=== PATIENT | female | born 1965 | race Caucasian/White ===

== ENCOUNTER → 2017-02-07 | Outpatient (CLI) | payer BC ==
[~2017-02-07] MED LIST: ALPH1TAB9 PO; ASPI-557 PO; CEPH500C2 PO; CITA40TA6 PO; LEVO25CA5 PO; METF-206 PO; METO50TA5 PO; MULT-933 PO; OMEG500C7 PO; OMEP40CA52 PO; PRAV40TA3 PO; TRAM50TA4 PO
== END ==
LOC: WC.BC 15:01
DX: Z12.31 Encounter for screening mammogram for malignant neoplasm of breast (principal); N64.59 Other signs and symptoms in breast
CPT/HCPCS: 77063; G0202

== ENCOUNTER 2017-10-27 08:35 | Inpatient (IN) ==
--- NOTE | 2017-10-27 08:54 | Emergency Department Report ---
SOB HPI - General Chief Complaint: Shortness of Breath/Dyspnea Stated Complaint: soa Time Seen by Provider: 10/27/17 08:37 - Related Data Home Medications Medication Instructions Recorded Confirmed Metformin Hcl 500 mg PO BID #0 10/23/12 [place]-3 Fatty Acids [Fish Oil] 1 cap PO DAILY #0 01/05/16 Ejnne-T-Zauwwdzfhmepc [Beano] 150 tab PO DAILY #0 07/16/16 Omeprazole 40 mg PO DAILY #0 cap 07/16/16 Aspirin [Aspir 81] 1 tab PO DAILY #30 tab 08/19/16 Citalopram Hydrobromide 1.5 tab PO DAILY #0 tab 08/19/16 [Citalopram HBr] Levothyroxine Sodium [Tirosint] 1 cap PO DAILY #0 08/19/16 Metoprolol Tartrate 2 tab PO BID #0 tab 08/19/16 Multivitamin [Multi-Day Vitamins] 1 tab PO DAILY #30 tab 08/19/16 Pravastatin Sodium 40 mg PO HS #0 tab 08/19/16 Tramadol HCl 50 mg PO [id number] #0 tab 08/19/16 Previous Rx's Medication Instructions Recorded cephALEXin [Cephalexin] 500 mg PO BID 3 Days #6 cap 11/04/16 Allergies Allergy/AdvReac Type Severity Reaction Status Date / Time codeine Allergy Unknown Verified 10/27/17 08:46 sulfamethoxazole Allergy Unknown Verified 10/27/17 08:46 trimethoprim Allergy Unknown Verified 10/27/17 08:46 hydrocodone Allergy Rash Verified 10/27/17 08:46 tea tree AdvReac Mild RASH Verified 10/27/17 08:46 ON LICENSE OF [facility] Patient Stated Medical History Post Menopausal Yes Now No Course Vital Signs Temperature 97.4 F 10/27/17 08:46 Pulse Rate 70 10/27/17 08:46 Respiratory Rate 22 10/27/17 08:46 Blood Pressure 146/90 H 10/27/17 08:46 Pulse Oximetry 92 10/27/17 08:46 Temperature 97.4 F 10/27/17 08:46 Pulse Rate 70 10/27/17 08:46 Respiratory Rate 22 10/27/17 08:46 Blood Pressure 146/90 H 10/27/17 08:46 Pulse Oximetry 92 10/27/17 08:46 Disposition Prescriptions: No Action Omeprazole 40 mg PO DAILY #0 cap Lggsj-Q-Upyhlkvkagmkg [Beano] 150 tab PO DAILY #0 Aspirin [Aspir 81] 1 tab PO DAILY #30 tab Citalopram Hydrobromide [Citalopram HBr] 1.5 tab PO DAILY #0 tab Pravastatin Sodium 40 mg PO HS #0 tab Levothyroxine Sodium [Tirosint] 1 cap PO DAILY #0 cephALEXin [Cephalexin] 500 mg PO BID 3 Days #6 cap Metformin Hcl 500 mg PO BID #0 [place]-3 Fatty Acids [Fish Oil] 1 cap PO DAILY #0 Metoprolol Tartrate 2 tab PO BID #0 tab Multivitamin [Multi-Day Vitamins] 1 tab PO DAILY #30 tab Tramadol HCl 50 mg PO [id number] #0 tab Referrals: Solomon Arroyo MD [Family Provider] -
[2017-10-27] MEDS ORDERED: IOHEXOL 350mg/ml 75ml INJECTION ONE (09:52)
[2017-10-27] MEDS ORDERED: NS 100 ML ONE (09:52)
[2017-10-27] MEDS ORDERED: SALINE FLUSH 10ml SYRINGE ONE (09:52)
--- NOTE | 2017-10-27 10:08 | XRay Report ---
EXAM: XR chest 1V LOCATION OF DICTATION: [facility] HISTORY: chest pain exertional dyspnea COMPARISON: September 12, 2017 FINDINGS: The heart size is normal. The mediastinal configuration is within normal limits. There are no consolidating opacities or pleural effusions. There is no pneumothorax. The osseous structures are within normal limits for the patient's age. IMPRESSION: No acute cardiopulmonary abnormalities demonstrated. .
--- NOTE | 2017-10-27 10:23 | CT Scan Report ---
EXAM: CT angio pulm emboli LOCATION OF DICTATION: [facility] HISTORY: exertional dyspnea history of clots, elevated d-dimer COMPARISON: No prior studies available for comparison. TECHNIQUE: Multiple contiguous axial images were obtained of the chest with contrast utilizing 85 mL of Omnipaque [address] angiogram protocol. Coronal, sagittal, and MIP reformatted images were utilized. Automated Exposure Control and Iterative Reconstruction dose reducing techniques were utilized. FINDINGS: The heart is mildly enlarged. There is a pericardial effusion. The visualized portions of the thoracic aorta and major branch vessels of the aortic arch fills with contrast homogenously and are unremarkable. There are several pulmonary filling defects demonstrated within the bilateral second third and fourth order branches of the bilateral upper and lower lobes. There is a small pulmonary infarct within the left lower lobe. Probable small additional infarct within the lateral left upper lobe. Mild mosaic attenuation pattern demonstrated. There are no pleural effusions. There is no pneumothorax. There is no axillary, hilar, or mediastinal lymphadenopathy. Moderate spondylosis of the thoracic spine. IMPRESSION: 1. Several bilateral pulmonary emboli with probable small pulmonary infarct in the left lower lobe and question of an additional small pulmonary infarct within the left upper lobe. There graph 2. Mild cardiomegaly. Dr. Clarke was informed of the findings after the interpretation was completed on 10/27/2017 at 10:19 AM. .
[2017-10-27] MEDS ORDERED: ENOXAPARIN 150 MG/ML INJECTION SQ SCH (10:47)
[2017-10-27] MEDS: SALINE FLUSH 10ml SYRINGE IVF PRN ×2 (11:08→20:43)
[2017-10-27] MEDS ORDERED: ONDANSETRON 4 MG/2 ML INJECTION IVP PRN (11:27)
[2017-10-27 11:33] VITALS: BMI 42.3
--- NOTE | 2017-10-27 12:04 | History & Physical Report ---
History of Present Illness Date: 10/27/17 Chief complaint: Dyspnea, Bilateral PE HPI: Patient is a 52-year-old female was brought to the emergency room today for acute evaluation of dyspnea and upper back pain. She reports that she has felt intermittently short of breath since . This morning. This got significantly worse. She was ambulating outside to her car to go to work. She felt severely short of breath accompanied with upper back pain. He was concerned about the sudden change in contacted 911 to be brought to the ER for further evaluation and treatment. Basic laboratory studies were obtained. CBC was normal, chemistry panel unremarkable. Troponin 0.024, d-dimer was found to be elevated at 985. A CT scan of the chest was obtained that did reveal bilateral pulmonary emboli. Although at rest patient is able to maintain saturations with any exertion or ambulation, she becomes dyspneic and hypoxic to 86%. In light these findings the hospitalist services were contacted and accepted patient for inpatient admission for further evaluation and treatment. It is expected that her stay will be greater than 2 overnights. She is seen on initial examination, she is alert, oriented and pleasant. She does note that she has had a history of DVT, however, it was in the . She notes being short of breath off and on since August. However, significantly worse today. She also reveals that she has had increased depression. She does see Anna Callahan at [place]. Several weeks ago she did report having suicidal thoughts, however, currently denies any SI or HI thoughts. Review of Systems All systems PM: 10-point ROS was reviewed, no additional remarkable complaints except - Respiratory Respiratory: Present: as per HPI, dyspnea, dyspnea on exertion, pain on inspiration Past Medical History Patient Stated Medical History Type II diabetes Hypertension Depression Peripheral neuropathy History of DVTs History of kidney stones Surgical History: Catheter-2015. Cholecystectomy. Right shoulder surgery- 1998. Colonoscopy-? 18 years ago Family History Updates: Father-prostate cancer, CAD. 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 Medications Home Medications Medication Instructions Recorded Confirmed Type Acetaminophen [Acetaminophen ER] 650 mg PO Q8H PRN 10/27/17 10/27/17 History Xcbrt-Q-Svrdeoobdtxgd [Beano] 300 unit PO DAILY 10/27/17 10/27/17 History Aspirin [Aspirin EC] 81 mg PO DAILY 10/27/17 10/27/17 History Citalopram [Celexa] 60 mg PO DAILY 10/27/17 10/27/17 History Levothyroxine Sodium 25 mcg PO DAILY 10/27/17 10/27/17 History Melatonin 1.5 mg PO HS 10/27/17 10/27/17 History Metformin [Glucophage] 1,000 mg PO BIDBL 10/27/17 10/27/17 History Metformin [Glucophage] 500 mg PO HS 10/27/17 10/27/17 History Metoprolol Tartrate [Metoprolol 100 mg PO BID 10/27/17 10/27/17 History Tartrate] Multivitamin [One Daily] 1 tab PO DAILY 10/27/17 10/27/17 History Steen-3/Dha/Epa/Fish Oil [Fish Oil 1,000 mg PO DAILY 10/27/17 10/27/17 History 1,000 mg Softgel] Omeprazole [Omeprazole] 40 mg PO DAILY 10/27/17 10/27/17 History Pravastatin [Pravachol] 40 mg PO HS 10/27/17 10/27/17 History Tramadol [Ultram] 50 mg PO Q12H PRN 10/27/17 10/27/17 History raNITIdine HCl [Zantac 75] 150 mg PO PM 10/27/17 10/27/17 History Allergies Allergy/AdvReac Type Severity Reaction Status Date / Time codeine Allergy Unknown Verified 10/27/17 08:46 sulfamethoxazole Allergy Unknown Verified 10/27/17 08:46 trimethoprim Allergy Unknown Verified 10/27/17 08:46 hydrocodone Allergy Rash Verified 10/27/17 08:46 tea tree AdvReac Mild RASH Verified 10/27/17 08:46 canagliflozin [From Invokana] AdvReac Verified 10/27/17 08:59 Exam Vital Signs: Temperature 96.9 F 10/27/17 11:32 Pulse Rate 72 10/27/17 11:32 Respiratory Rate 22 10/27/17 11:32 Blood Pressure 140/81 H 10/27/17 11:32 Pulse Oximetry 92 10/27/17 11:32 Height/Weight/BMI: Height 1.88 m Weight 149.3 kg Body Mass Index 42.3 - Constitutional Present: mild distress (exertional dyspnea noted), well nourished, well developed - Routine HEENT Exam Eye: Present: EOMI ENT: Present: mucous membranes moist, dentition normal - Routine Respiratory Exam Present: CTA bilaterally. Absent: wheezes - Routine Cardiovascular Exam Present: RRR, S1, S2. Absent: murmur - Routine Abdominal Exam Present: soft, normoactive bowel sounds, non distended. Absent: tenderness - Routine Extremities Exam Present: normal capillary refill - Routine Skin Exam Present: intact, dry, warm Comments: Several small scabes to Bilateral lower ext - Routine Neurological Exam Present: alert, oriented X3, CN II-XII intact - Routine Psychiatric Exam Present: normal affect Results - Labs CBC & Chem 7: 10/27/17 09:11 10/27/17 09:11 Assessment and Plan (1) Bilateral pulmonary embolism Current visit: Yes Status: Acute Assessment and Plan: Impression Bilateral pulmonary emboli Dyspnea Hypoxia- RA 86% Type II diabetes Hypercholesterolemia Hypertension Depression History of DVT () Morbid Obesity with BMI 42.3 Plan Admit patient. Inpatient status under the care of Dr. Hernandez for bilateral pulmonary emboli with dyspnea. Patient was started on anticoagulation while in the emergency room. Lovenox 200 milligrams subcutaneous daily. Will consult with pharmacy for warfarin dosing. Monitor patient on cardiac telemetry, Oxygen to maintain saturations Monitor Accu-Cheks given patient's history of 2 diabetes, continue on metformin. Continue on all other routine home medications. Patient denies suicidal or homicidal ideation at time of admission. Did discuss depression and recent suicidal statements several weeks ago. Encourage patient to notify staff if depression worsens or she has any other psychiatric concerns. If so could consult inpatient psychiatry. Follow routine CBC and BMP to follow blood counts, renal function and electrolytes. Full code as per her requests. Will discuss further orders and plan of care with attending, Dr. Hernandez. At time of discharge medical care will return to PCP Dr. Arroyo. DVT Prophylaxis: Lovenox Resuscitation Status: Full Code - Physician Narrative Physician: Bandar Hernandez MD Narrative: Date: 10/27/17 Time: 1350 Have independent interviewed and examined pt. Chart reviewed. Case discussed with ED physician and my ARC CUTTER. Care plan developed with my supervision; agree with above. Presents to ED with acute onset of difficulty breathing. Hard to take a deep breath. Very SOA with activities-winded with walking to car. Couldn't catch breath. Pain to upper back. No recent trauma or immobilization. Denies increased swelling or pain to legs. Does have DM. Non smoker. Evaluated in ED- found to be hypoxic with activities. CTA showing bilateral PE. Lungs: decreased bilaterally, no wheezes CV: regular AB: soft nt/nd MSE: awake alert appropriate Plan: Inpatient admission for treatment of Bilateral PE. Lovenox/Coumadin. IS to help pulmonary toilet. Supplemental O2 as needed. Check ECHO to assess for right heart strain. May continue home medications. Monitor sugars. Full code as per her requests. Care to return to Dr Arroyo at time of discharge from [facility]. Hospital Course Summary Disclaimer: The visit summary below is not to be considered part of the above Progress Note. Hospital Course: Impression Bilateral pulmonary emboli Dyspnea Hypoxia- RA 86% Type II diabetes Hypercholesterolemia Hypertension Depression History of DVT () Morbid Obesity with BMI 42.3 Plan Admit patient. Inpatient status under the care of Dr. Hernandez for bilateral pulmonary emboli with dyspnea. Patient was started on anticoagulation while in the emergency room. Lovenox 200 milligrams subcutaneous daily. Will consult with pharmacy for warfarin dosing. Monitor patient on cardiac telemetry, Oxygen to maintain saturations. Monitor Accu-Cheks given patient's history of 2 diabetes, continue on metformin. Continue on all other routine home medications. Patient denies suicidal or homicidal ideation at time of admission. Did discuss depression and recent suicidal statements several weeks ago. Encourage patient to notify staff if depression worsens or she has any other psychiatric concerns. If so could consult inpatient psychiatry. Follow routine CBC and BMP to follow blood counts, renal function and electrolytes. Full code as per her requests. At time of discharge medical care will return to PCP Dr. Arroyo.
[2017-10-27] MEDS ORDERED: WARFARIN - PHARMACY CONSULT MC ONE (12:10)
[2017-10-27] MEDS: METFORMIN 1,000 MG TABLET PO SCH (13:23)
[2017-10-27] MEDS ORDERED: WARFARIN 5 MG TABLET PO ONE (13:51)
[2017-10-27] MEDS ORDERED: BISACODYL 10 MG SUPPOSITORY RECTALLY PRN (13:52)
--- NOTE | 2017-10-27 14:04 | Pharmacy Consult ---
Pharmacy Consult-Warfarin - Consult Information COUMADIN CONSULT (Initial): Dx: P.E. Baseline INR = 1.08. Will give Warfarin 10mg today. NOTE MADE IN "DOCUMENT" IN EMR. Thank you.
[2017-10-27] MEDS: MAG-AL + SIM ORAL LIQUID 30ml PO PRN (16:32)
[2017-10-27] MEDS: MELATONIN 1 MG TABLET PO SCH (20:42)
[2017-10-27] MEDS: PRAVASTATIN 40 MG TABLET PO SCH (20:43)
[2017-10-27] MEDS: RANITIDINE 150 MG TABLET PO SCH (20:43)
[2017-10-27] MEDS: METFORMIN 500 MG TABLET PO SCH (20:43)
[2017-10-28] MEDS: MAG-AL + SIM ORAL LIQUID 30ml PO PRN ×2 (04:06→15:58)
[2017-10-28] MEDS: LEVOTHYROXINE 25 MCG TABLET PO SCH (06:07)
[2017-10-28] MEDS: OMEPRAZOLE 20 MG CAPSULE PO SCH (06:07)
--- NOTE | 2017-10-28 08:26 | Pharmacy Consult ---
Pharmacy Consult-Warfarin - Laboratory Information 10/28/17 04:14 INR 1.07 - Consult Information COUMADIN CONSULT: 52 yr old female 6'2" 149.5 kg with a history of DVT now with bilateral PE. Patient on treatment dose of Enoxaparin of 230 mg SQ daily. 10/27/17 Initial INR: 1.08 10/27/17 Initial Dose: 10 mg 10/28/17 INR: 1.07 10/28/17 Dose: 10 mg Thank you. Zeynep DingD
[2017-10-28] MEDS: ENOXAPARIN 120 MG/0.8 ML INJECTION SQ SCH (08:38)
[2017-10-28] MEDS: METFORMIN 1,000 MG TABLET PO SCH ×2 (08:39→12:45)
[2017-10-28] MEDS: MULTI-VITAMIN PLAIN TABLET PO SCH (08:39)
[2017-10-28] MEDS: CITALOPRAM 40 MG TABLET PO SCH (08:39)
[2017-10-28] MEDS ORDERED: ALPHA D GALACTOSIDASE 300 UNIT PO SCH (09:00)
[2017-10-28] MEDS ORDERED: ENOXAPARIN 100 MG/ML INJECTION SQ SCH (09:00)
--- NOTE | 2017-10-28 11:13 | Echocardiogram ---
DATE OF PROCEDURE October 27, [address] Bandar Hernandez This is a two-dimensional echo with spectral Doppler, color-flow and M-mode. It was obtained in a patient with pulmonary embolism. Left atrial dimension is normal. Left ventricular end-diastolic dimension is normal. Left ventricular wall thickness is at the upper limits of normal. LV systolic function is normal with ejection fraction of about 60%. Right atrium is dilated. Right ventricle is dilated. Aortic root dimension is normal. Mitral valve is morphologically normal with no stenosis or insufficiency. Aortic valve appears to be normal. Tricuspid valve shows mild tricuspid regurgitation with moderate pulmonary hypertension with estimated pulmonary artery systolic pressure of 61. Pulmonary valve shows no pulmonary insufficiency. There is no pericardial effusion. IMPRESSION 1. Normal LV systolic function with ejection fraction of 60%. 2. Right atrial dilation. 3. Right ventricular dilation. 4. Mild tricuspid regurgitation with moderate pulmonary hypertension with estimated pulmonary artery systolic pressure of 61. MTDD
[2017-10-28] MEDS ORDERED: WARFARIN 5 MG TABLET PO SCH (12:00)
--- NOTE | 2017-10-28 18:30 | Progress Note ---
- Date 10/28/17 Subjective: Cher is seen this afternoon in follow-up for bilateral pulmonary emboli. She is seen at rest in bed, breathing on room air without distress or hypoxia. She does report with exertion to the bathroom. She does become dyspneic. She complains of feeling like her arms are heavy or like "tree trunks". She reports this is been going on approximately as long as her dyspnea, since August. His chest pain, dizziness, palpitations, GI complaints. Appetite is good. Blood sugars have been well controlled. Objective Vital signs: Temperature 97.5 F 10/28/17 15:15 Pulse Rate 74 10/28/17 16:00 Respiratory Rate 20 10/28/17 15:15 Blood Pressure 126/70 10/28/17 15:15 Pulse Oximetry 95 10/28/17 15:15 Height/Weight/BMI: Height 1.88 m Weight 149.5 kg Body Mass Index 42.3 - Constitutional Present: no acute distress, well nourished, well developed - Routine HEENT Exam Eye: Present: EOMI ENT: Present: mucous membranes moist, dentition normal - Routine Respiratory Exam Present: CTA bilaterally. Absent: wheezes - Routine Cardiovascular Exam Present: RRR. Absent: murmur - Routine Abdominal Exam Present: soft, normoactive bowel sounds, non distended. Absent: tenderness - Routine Extremities Exam Present: normal capillary refill - Routine Skin Exam Present: intact, dry, warm - Routine Neurological Exam Present: alert, oriented X3, CN II-XII intact, moving all extremities - Routine Lymphatic Exam Lymphatic: Absent: adenopathy - Routine Psychiatric Exam Present: normal affect, cooperative Results - Labs CBC & Chem 7: 10/28/17 04:14 10/28/17 04:14 Assessment and Plan (1) Bilateral pulmonary embolism Current visit: Yes Status: Acute Assessment and Plan: Impression Bilateral pulmonary emboli Dyspnea Hypoxia- RA 86% Type II diabetes Hypercholesterolemia Hypertension Depression History of DVT () Morbid Obesity with BMI 42.3 Plan Overall doing well. Become dyspneic with exertion. May consider checking ambulatory sat tomorrow. Continue with Lovenox bridge Coumadin. INR remains subtherapeutic currently Overall blood sugars appear to be well controlled, continue on metformin PT/OT to evaluate strength DVT Prophylaxis: Lovenox, Coumadin Resuscitation Status: Full Code - Physician Narrative Physician: Isabel Kirkland MD Narrative: Date: 10/28/17 Time: 10:[address] Kirkland I reviewed this chart, the patient history, and the NITROGLYCERIN SUPERVISOR's/PA's documented findings as above. We discussed and formulated the assessment and plan as above with the additions below. The patient was seen this evening. She states she's feeling better. She does get short of breath with activity. She denies any pain currently other than some headache. She is eating and drinking well. She does have family history of blood clots in her mother. Patient is alert and in no acute distress. Chest is clear to auscultation. Cardiovascular reveals a regular rate and rhythm. Abdomen is soft and nontender. Extremities are free of edema. Impression and plan Bilateral pulmonary emboli-symptomatic dyspnea with activity-continue Lovenox, Coumadin Mild elevated calcium-recheck tomorrow Diabetes mellitus- fair control Hypertension- well controlled Hospital Course Summary Disclaimer: The visit summary below is not to be considered part of the above Progress Note. Hospital Course: Impression Bilateral pulmonary emboli Dyspnea Hypoxia- RA 86% Type II diabetes Hypercholesterolemia Hypertension Depression History of DVT () Morbid Obesity with BMI 42.3 Plan Admit patient. Inpatient status under the care of Dr. Hernandez for bilateral pulmonary emboli with dyspnea. Patient was started on anticoagulation while in the emergency room. Lovenox 200 milligrams subcutaneous daily. Will consult with pharmacy for warfarin dosing. Monitor patient on cardiac telemetry, Oxygen to maintain saturations. Monitor Accu-Cheks given patient's history of 2 diabetes, continue on metformin. Continue on all other routine home medications. Patient denies suicidal or homicidal ideation at time of admission. Did discuss depression and recent suicidal statements several weeks ago. Encourage patient to notify staff if depression worsens or she has any other psychiatric concerns. If so could consult inpatient psychiatry. Follow routine CBC and BMP to follow blood counts, renal function and electrolytes. Full code as per her requests. At time of discharge medical care will return to PCP Dr. Arroyo. 10/28 Overall doing well. Become dyspneic with exertion. May consider checking ambulatory sat tomorrow. Continue with Lovenox bridge Coumadin. INR remains subtherapeutic currently Overall blood sugars appear to be well controlled, continue on metformin PT/OT to evaluate strength
[2017-10-28] MEDS: TRAMADOL 50 MG TABLET PO PRN (19:02)
[2017-10-28] MEDS: RANITIDINE 150 MG TABLET PO SCH (21:12)
[2017-10-28] MEDS: PRAVASTATIN 40 MG TABLET PO SCH (21:12)
[2017-10-28] MEDS: MELATONIN 1 MG TABLET PO SCH (21:13)
[2017-10-28] MEDS: METFORMIN 500 MG TABLET PO SCH (22:23)
[2017-10-28] MEDS: SALINE FLUSH 10ml SYRINGE IVF PRN (22:28)
[2017-10-29] MEDS: OMEPRAZOLE 20 MG CAPSULE PO SCH (06:07)
[2017-10-29] MEDS: LEVOTHYROXINE 25 MCG TABLET PO SCH (06:07)
[2017-10-29] MEDS: METFORMIN 1,000 MG TABLET PO SCH ×2 (08:30→12:25)
[2017-10-29] MEDS: ENOXAPARIN 120 MG/0.8 ML INJECTION SQ SCH (08:30)
[2017-10-29] MEDS: MULTI-VITAMIN PLAIN TABLET PO SCH (08:30)
[2017-10-29] MEDS: CITALOPRAM 40 MG TABLET PO SCH (08:30)
[2017-10-29] MEDS ORDERED: WARFARIN 5 MG TABLET PO SCH (12:00)
--- NOTE | 2017-10-29 13:17 | Pharmacy Consult ---
Pharmacy Consult-Warfarin - Laboratory Information 10/28/17 10/29/17 04:14 04:01 INR 1.07 1.15 - Consult Information COUMADIN CONSULT (Recurring): BS is a 52-year-old female was brought to the emergency room for acute evaluation of dyspnea and upper back pain. She reports that she has felt intermittently short of breath since [place]. She does note that she has had a history of DVT, however, it was in the 1980s. Patient was fund to have bilateral pulmonary embolism. Patient has been started on enoxaparin and warfarin. Date INR Dose 10/27/17 1.03 10 mg 10/28/17 1.07 10 mg 10/29/17 1.15 Plan 10 mg I will give Warfarin 10 mg po today. The Pharmacy will continue to monitor the INR's and adjust the dosage of the Coumadin accordingly. Thank you for the Warfarin Dosing Protocol, Martin Pandey, Pharmacist.
[2017-10-29] MEDS: TRAMADOL 50 MG TABLET PO PRN (13:53)
--- NOTE | 2017-10-29 17:17 | Progress Note ---
- Date 10/29/17 Subjective: Cher is seen on follow-up bilateral pulmonary emboli. She is resting comfortably on room air without distress. She was able to do an ambulatory oximetry with respiratory therapy today and did maintain saturations greater than 91%. Overall , she feels that her breathing continues to improve and she is less dyspneic with exertion. Denies chest pain, or GI concerns. No GI bleeding or black stools. Objective Vital signs: Temperature 96.3 F L 10/29/17 15:37 Pulse Rate 73 10/29/17 16:00 Respiratory Rate 18 10/29/17 15:37 Blood Pressure 128/67 10/29/17 15:37 Pulse Oximetry 95 10/29/17 15:37 Height/Weight/BMI: Height 1.88 m Weight 148.6 kg Body Mass Index 42.3 - Constitutional Present: no acute distress, well nourished, well developed - Routine HEENT Exam Eye: Present: EOMI ENT: Present: mucous membranes moist, dentition normal - Routine Respiratory Exam Present: CTA bilaterally. Absent: wheezes - Routine Cardiovascular Exam Present: RRR. Absent: murmur - Routine Abdominal Exam Present: soft, normoactive bowel sounds, non distended. Absent: tenderness - Routine Extremities Exam Present: normal capillary refill - Routine Skin Exam Present: intact, dry, warm Comments: Bilateral agee scabs - Routine Neurological Exam Present: alert, oriented X3, CN II-XII intact - Routine Lymphatic Exam Lymphatic: Absent: adenopathy - Routine Psychiatric Exam Present: normal affect, cooperative Results - Labs CBC & Chem 7: 10/28/17 04:14 10/28/17 04:14 Assessment and Plan (1) Bilateral pulmonary embolism Current visit: Yes Status: Acute Assessment and Plan: Impression Bilateral pulmonary emboli Dyspnea Hypoxia- RA 86% Type II diabetes Hypercholesterolemia Hypertension Depression History of DVT () Morbid Obesity with BMI 42.3 Plan Dyspnea continues to improve. Patient maintains adequate saturations with exertion/ambulation Plan will be to discharge home tomorrow. Working with case management to set up outpatient Lovenox injections. She does not feel comfortable administering Lovenox injections herself. Will need to be set up through primary care, [facility], Dr. Arroyo. Patient will need follow carefully with INR management and Warfarin dosing. Case discussed with case management, and attending, Dr. Kirkland 10/29/2017-8:50 PM-I reviewed this chart, the patient history, and the POLITICAL THEORY PROFESSOR's/PA 's documented findings as above. We discussed and formulated the assessment and plan as above with the additions below.-Dr. Kirkland The patient was seen this evening in her room. She states she is feeling better. She still a little short of breath with activity but oxygen saturations are not decreasing. She denies any pain. She is eating and drinking well. On exam she is alert and in no acute distress. Chest is clear to auscultation. Cardio vascular reveals a regular rate and rhythm. Abdomen is soft and nontender. Extremities are free of edema. Impression and plan Overall, she is doing well with her bilateral PEs. Plan for probable discharge tomorrow with Lovenox as an outpatient with daily Coumadin and INR monitoring. Recheck CBC and basic metabolic profile tomorrow. - Physician Narrative Narrative: Date: 10/29/17 Time: 1714 Hospital Course Summary Disclaimer: The visit summary below is not to be considered part of the above Progress Note. Hospital Course: Impression Bilateral pulmonary emboli Dyspnea Hypoxia- RA 86% Type II diabetes Hypercholesterolemia Hypertension Depression History of DVT () Morbid Obesity with BMI 42.3 Plan Admit patient. Inpatient status under the care of Dr. Hernandez for bilateral pulmonary emboli with dyspnea. Patient was started on anticoagulation while in the emergency room. Lovenox 200 milligrams subcutaneous daily. Will consult with pharmacy for warfarin dosing. Monitor patient on cardiac telemetry, Oxygen to maintain saturations. Monitor Accu-Cheks given patient's history of 2 diabetes, continue on metformin. Continue on all other routine home medications. Patient denies suicidal or homicidal ideation at time of admission. Did discuss depression and recent suicidal statements several weeks ago. Encourage patient to notify staff if depression worsens or she has any other psychiatric concerns. If so could consult inpatient psychiatry. Follow routine CBC and BMP to follow blood counts, renal function and electrolytes. Full code as per her requests. At time of discharge medical care will return to PCP Dr. Arroyo. 10/28 Overall doing well. Become dyspneic with exertion. May consider checking ambulatory sat tomorrow. Continue with Lovenox bridge Coumadin. INR remains subtherapeutic currently Overall blood sugars appear to be well controlled, continue on metformin PT/OT to evaluate strength 10/29 Dyspnea continues to improve. Patient maintains adequate saturations with exertion/ambulation Plan will be to discharge home tomorrow. Working with case management to set up outpatient Lovenox injections. She does not feel comfortable administering Lovenox injections herself. Will need to be set up through primary care, [facility], Dr. Arroyo. Patient will need follow carefully with INR management and Warfarin dosing. Case discussed with case management, and attending, Dr. Kirkland
[2017-10-29] MEDS: PRAVASTATIN 40 MG TABLET PO SCH (21:29)
[2017-10-29] MEDS: RANITIDINE 150 MG TABLET PO SCH (21:29)
[2017-10-29] MEDS: MELATONIN 1 MG TABLET PO SCH (21:29)
[2017-10-29] MEDS: METFORMIN 500 MG TABLET PO SCH (21:29)
[2017-10-29] MEDS: SALINE FLUSH 10ml SYRINGE IVF PRN (21:34)
[2017-10-30] MEDS: OMEPRAZOLE 20 MG CAPSULE PO SCH (05:31)
[2017-10-30] MEDS: LEVOTHYROXINE 25 MCG TABLET PO SCH (05:31)
--- NOTE | 2017-10-30 07:27 | Pharmacy Consult ---
Pharmacy Consult-Warfarin - Laboratory Information 10/28/17 10/29/17 10/30/17 04:14 04:01 04:30 INR 1.07 1.15 1.43 H - Consult Information We will continue to give warfarin 10mg p.o. today. INR is increasing to therapeutic and anticipate that to be the case on 10/31/17. We will continue to monitor and adjust. Thanks
[2017-10-30 08:17] VITALS: O2SAT 97
[2017-10-30] MEDS: METFORMIN 1,000 MG TABLET PO SCH ×2 (09:05→13:19)
[2017-10-30] MEDS: ENOXAPARIN 120 MG/0.8 ML INJECTION SQ SCH (09:40)
[2017-10-30] MEDS: MULTI-VITAMIN PLAIN TABLET PO SCH (09:42)
[2017-10-30] MEDS: CITALOPRAM 40 MG TABLET PO SCH (09:42)
[2017-10-30] MEDS: TRAMADOL 50 MG TABLET PO PRN (09:50)
[2017-10-30] MEDS ORDERED: WARFARIN 5 MG TABLET PO SCH (12:00)
--- NOTE | 2017-10-30 12:01 | Progress Note ---
- Date 10/30/17 Subjective: Ashley complains of a right sided migraine, typical of her usual migraines. She took a tramadol and is waiting on effects to kick in. She usually takes Excedrin at home - I offered some tylenol and caffeine but she declined. 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 No chest pain. As we were discussing her new medications, she mentioned that her mother had blood clots and asked if this could be hereditary. She also stated that when she was applying lotion to her feet 2 days ago, she noticed the the soles of her feet were purple and felt cold. She has diabetic neuropathy, mostly with numbness to her feet. When they are purple colored, they also itch. Objective Vital signs: Temperature 97.8 F 10/30/17 08:15 Pulse Rate 78 10/30/17 08:15 Respiratory Rate 18 10/30/17 08:15 Blood Pressure 116/67 10/30/17 08:15 Pulse Oximetry 97 10/30/17 08:15 Height/Weight/BMI: Height 1.88 m Weight 148.7 kg Body Mass Index 42.3 - Constitutional Present: no acute distress, well nourished, well developed, morbidly obese - Routine HEENT Exam Eye: Absent: conjunctival icterus, scleral injection ENT: Present: oropharynx clear - Routine Respiratory Exam Present: CTA bilaterally - Routine Cardiovascular Exam Present: RRR, S1, S2 - Routine Abdominal Exam Present: soft, normoactive bowel sounds, non tender - Routine Extremities Exam Present: cyanosis (plantar surfaces of both feet, including toes, R>L, delayed cap refill (>5 sec)), pulses intact (+DP and PT pulses b/l) - Routine Musculoskeletal Exam Musculoskeletal: Present: moving extremities well. Absent: no clubbing or cyanosis - Routine Skin Exam Present: dry, warm, wounds (multiple old wounds to shins/BLE; small dressings on shins B/L; missing left great toenail; other toes are erythemic with sloughing) - Routine Neurological Exam Present: alert, oriented X3 Results - Labs CBC & Chem 7: 10/30/17 04:30 10/30/17 04:30 Assessment and Plan (1) Bilateral pulmonary embolism Status: Acute Assessment and Plan: Impression Bilateral pulmonary emboli Dyspnea Hypoxia- RA 86% Type II diabetes Hypercholesterolemia Hypertension Depression History of DVT () Morbid Obesity with BMI 42.[address] Kirkland - Coumadin can cause "blue toe syndrome" or skin necrosis - she placed a hold on Coumadin for now. Will obtain B/L arterial dopplers. Consider genetic studies in outpatient setting after anticoagulation course has been completed - Ashley's mother had blood clots. Recommend f/u with store assistant regarding appropriate diabetic foot care. She will also need a work release/return to work date. Discussed with CM. 10/30/2017-9:15 PM-I reviewed this chart, the patient history, and the ENERGY EFFICIENCY SPECIALIST's/PA 's documented findings as above. We discussed and formulated the assessment and plan as above with the additions below.-Dr. Kirkland I saw the patient early this afternoon. I did examine the patient's feet. She seems to have some mild skin color changes with more erythema on most of the plantar portion of the foot with white skin in the arches. She stated that her feet have looked this way for 5 or 6 years as long as she has had diabetes. She has noticed that in the mornings, her feet have looked a little more purplish but that has resolved at this time. She denies any pain in her feet. She is otherwise feeling well. She denies any shortness of breath. She denies any chest pain. She is eating and drinking okay. I do not see any other skin discoloration elsewhere. Chest is clear to auscultation. Cardiovascular reveals a regular rate and rhythm. Abdomen is soft and nontender. Extremities are free of edema. Neurologic exam reveals no focal deficits. Because of concern for possible "blue toe syndrome" or skin necrosis, we did delay her discharge. She did undergo bilateral arterial Dopplers of her legs which showed only mild stenosis in the left distal posterior tibial artery but no occlusions. Right leg showed no hemodynamically significant stenosis. I did reexamine the patient in the afternoon and her feet looked the same. Her discoloration looked similar to people with Raynaud's syndrome. Feet were warm. Pulses were good. I asked her again how long her feet have had this discoloration and she stated ever since she was diagnosed with diabetes which was approximately 5 years ago. At this time, I do not think she is having a complication from her Coumadin such as blue toe syndrome or skin necrosis. We did restart her Coumadin this evening prior to discharge. Plans are for follow- up with Dr. Arroyo tomorrow to receive Lovenox and repeat INR. My nurse practitioner, Marie did speak with Dr. Arroyo. DVT Prophylaxis: Lovenox Resuscitation Status: Full Code - Physician Narrative Narrative: Date: 10/30/17 Time: 1156 Hospital Course Summary Disclaimer: The visit summary below is not to be considered part of the above Progress Note. Hospital Course: Impression Bilateral pulmonary emboli Dyspnea Hypoxia- RA 86% Type II diabetes Hypercholesterolemia Hypertension Depression History of DVT () Morbid Obesity with BMI 42.3 Plan Admit patient. Inpatient status under the care of Dr. Hernandez for bilateral pulmonary emboli with dyspnea. Patient was started on anticoagulation while in the emergency room. Lovenox 200 milligrams subcutaneous daily. Will consult with pharmacy for warfarin dosing. Monitor patient on cardiac telemetry, Oxygen to maintain saturations. Monitor Accu-Cheks given patient's history of 2 diabetes, continue on metformin. Continue on all other routine home medications. Patient denies suicidal or homicidal ideation at time of admission. Did discuss depression and recent suicidal statements several weeks ago. Encourage patient to notify staff if depression worsens or she has any other psychiatric concerns. If so could consult inpatient psychiatry. Follow routine CBC and BMP to follow blood counts, renal function and electrolytes. Full code as per her requests. At time of discharge medical care will return to PCP Dr. Arroyo. 10/28 Overall doing well. Become dyspneic with exertion. May consider checking ambulatory sat tomorrow. Continue with Lovenox bridge Coumadin. INR remains subtherapeutic currently Overall blood sugars appear to be well controlled, continue on metformin PT/OT to evaluate strength 10/29 Dyspnea continues to improve. Working with case management to set up outpatient Lovenox injections. She does not feel comfortable administering Lovenox injections herself. Will need to be set up through primary care, [facility], Dr. rAroyo. Patient will need follow carefully with INR management and Warfarin dosing. 10/30 Coumadin can cause "blue toe syndrome" or skin necrosis - she placed a hold on Coumadin for now. Will obtain B/L arterial dopplers. Consider genetic studies in outpatient setting after anticoagulation course has been completed - Ashley's mother had blood clots. Recommend f/u with store assistant regarding appropriate diabetic foot care. She will also need a work release/return to work date.
--- NOTE | 2017-10-30 14:21 | Ultrasound Report ---
Indication: cyanosis to plantar surfaces of feet PROCEDURE: US arterial duplex LE BI: Technique: Grayscale color and duplex Doppler imaging was performed of the arterial tree of both legs. Findings: RIGHT LEG (cm/sec) Common Femoral 92 Superficial Femoral Proximal 106 Mid 118 Distal 85.9 Popliteal 51.6 MADHURI-prox 73.9 SCIENTIFIC DIVER-prox 37.8 MADHURI-dist 88.5 SCIENTIFIC DIVER-dist 50.7 LEFT LEG (cm/sec) Common Femoral 102 Superficial Femoral Proximal 92 Mid 125 Distal 52.4 Popliteal 46.4 MADHURI-prox 73 SCIENTIFIC DIVER-prox 44.7 MADHURI-dist 43 SCIENTIFIC DIVER-dist 27.5 Normal multiphasic waveforms in the right lower extremity arteries. Normal multiphasic waveforms in the left lower extremity arteries to the level of the distal posterior tibial artery which shows a dampened waveform. No velocity elevation. IMPRESSION: 1. No hemodynamically significant stenosis on the right. 2. Mild stenosis in the left distal posterior tibial artery. No occlusions. .
--- NOTE | 2017-10-30 16:35 | Discharge Summary ---
Discharge Information Date of admission: 10/27/17 10:42 Anticipated date of discharge: 10/30/17 Attending Physician: Isabel Kirkland MD Primary care physician: Solomon Arroyo MD - Discharge Diagnosis (1) Bilateral pulmonary embolism Status: Acute Discharge diagnoses Bilateral pulmonary emboli Dyspnea (improved) Hypoxia- RA 86% (resolved) Associated chronic conditions Type II diabetes Hypercholesterolemia Hypertension Depression History of DVT () Morbid Obesity with BMI 42.3 - Laboratory Labs: 10/30/17 04:30 10/30/17 04:30 - Radiology Radiology: CXR - no acute abnormalities CT PE protocol - 1. Several bilateral pulmonary emboli with probable small pulmonary infarct in the left lower lobe and question of an additional small pulmonary infarct within the left upper lobe. 2. Mild cardiomegaly. B/L arterial dopplers lower extremities - 1. No hemodynamically significant stenosis on the right. 2. Mild stenosis in the left distal posterior tibial artery. No occlusions. History of Present Illness HPI: Patient is a 52-year-old female was brought to the emergency room for acute evaluation of dyspnea and upper back pain. She reports that she has felt intermittently short of breath since . This morning, this became significantly worse. She was ambulating outside to her car to go to work. She felt severely short of breath accompanied with upper back pain. She was concerned about the sudden change and contacted 911. Basic laboratory studies were obtained. CBC was normal, chemistry panel unremarkable. Troponin 0.024, d- dimer was elevated at 985. A CT scan of the chest revealed bilateral pulmonary emboli. Although at rest patient is able to maintain saturations with any exertion or ambulation, she becomes dyspneic and hypoxic to 86%. In light these findings the hospitalist services were contacted and accepted patient for inpatient admission for further evaluation and treatment. It is expected that her stay will be greater than 2 overnights. She does note that she has had a history of DVT, however, it was in the 1980s. She has had increased depression. She sees Anna Callahan at [facility]. Objective Vital signs: Temperature 97.8 F 10/30/17 08:15 Pulse Rate 78 10/30/17 08:15 Respiratory Rate 18 10/30/17 08:15 Blood Pressure 116/67 10/30/17 08:15 Pulse Oximetry 97 10/30/17 08:15 Height/Weight/BMI: Height 1.88 m Weight 148.7 kg Body Mass Index 42.3 Hospital Course This is a general summary of the patient's hospital course. For more details refer to the complete medical record. Hospital course: Admitted to inpatient status on 10/27/17. She was started on Lovenox, and pharmacy was consulted for Coumadin dosing. By the following day, she was feeling better, and her dyspnea gradually improved over the next few days. Blood sugars remained under reasonable control. INR was slow to climb on Coumadin 10 mg daily. Lovenox injections were discussed but she did not feel like she could give her own shots and thus arrangements were made for her to go to Dr. Arroyo's office M-F for injections and [facility] over the weekend. Prior to discharge, she mentioned that she developed a purple color to her feet (her subsequent answers were inconsistent as far as purple color onset goes, but ultimately patient reported that her feet have been purple for about 5 years, ever since diagnosed with diabetes). Nonetheless, b/l arterial dopplers were obtained, which did not show any significant occlusions. She was provided with a work note with return to work date of November 10, which may be adjusted per PCP. She has an appointment already scheduled with Dr. Arroyo for 10/31/18 at 0900 and will have INR drawn at that time. Dr. Arroyo to manage Coumadin dosing; will send Rx for 10 mg. Rx for Lovenox 230 mg was also provided. We will have her stop ASA and fish oil. For her migraines, she was instructed to avoid Excedrin or ibuprofen and try Tylenol with/without caffeine. Patient understood the instructions and was discharged home in stable condition. We would recommend f/u with a dragline oiler to help with diabetic foot care. Time spent with patient: discharge greater than 30 minutes DVT Prophylaxis: Lovenox, Coumadin Discharge Plan - Discharge Disposition Discharge Date: 10/30/17 Disposition: Discharged Home, Self-Care *Condition: Stable Reason For Visit (Visit label in EMR): bilateral PE - Discharge Medications *Discharge Medications: New Enoxaparin Sodium [Lovenox] 230 mg SQ DAILY syringe Continue Acetaminophen [Acetaminophen ER] 650 mg PO Q8H PRN PRN Reason: Pain raNITIdine HCl [Zantac 75] 150 mg PO PM Citalopram [Celexa] 60 mg PO DAILY Levothyroxine Sodium 25 mcg PO DAILY Metformin [Glucophage] 500 mg PO HS Metformin [Glucophage] 1,000 mg PO BIDBL Metoprolol Tartrate 100 mg PO BID Multivitamin [One Daily] 1 tab PO DAILY Pravastatin [Pravachol] 40 mg PO HS Tramadol [Ultram] 50 mg PO Q12H PRN PRN Reason: Pain Melatonin 1.5 mg PO HS Gomqc-Z-Utvdlzivcbouc [Beano] 300 unit PO DAILY Omeprazole 40 mg PO DAILY Discontinued Aspirin [Aspirin EC] 81 mg PO DAILY [place]-3/Dha/Epa/Fish Oil [Fish Oil 1,000 mg Softgel] 1,000 mg PO DAILY - Discharge Packet/Instructions *Diet: You've been educated on foods high in vitamin K. Please follow the dietary instructions provided to keep your INR levels stable. Minimize sweets and carbohydrates due to diabetes. *Activity: No restrictions. *Pain Management/Treatment: Tylenol as needed. Do not take Excedrin, Aspirin, or ibuprofen, which can all make bleeding worse. *Wound Care: Please ask Dr. Arroyo about follow up with a dragline oiler to help with your toenails and foot care. Additional Instructions: Have INR drawn on 10/31/[address] Arroyo. He will help decide how long to have Lovenox injections and what dose of Coumadin to take. Your goal INR is 2.0-3.0. With your mom's history of blood clots, you may also want to talk to Dr. Arroyo about further investigating into your blood clots, but this would have to wait until you are off Coumadin. *Expected Signs/Symptoms: You might feel short of breath, weak or fatigued for a short while after discharge. These symptoms should improve. *Notify Physician if: Worsened problems breathing, chest pain, fever, uncontrolled bleeding, or any new concerns. *During Business Hours Contact: Dr. Arroyo's office *After Business Hours Contact: The on-call provider for Dr. Arroyo. *Pending Lab/Results: No Pending Lab - Referrals/Follow Up *Referrals/Follow Up: Solomon Arroyo MD [Family Provider] - 1 Day (CALL TO MAKE APPOINTMENT, TO BE SEEN THE NEXT DAY---OFFICE NUMBER [phone]) - Patient Handouts Patient Handouts: [facility] [place]. Mendoza Coumadin In Your Diet, Pulmonary Embolism (GEN) - Dismissal Complete Discharge Instructions are:: Complete Physician Narrative - Narrative Physician: Isabel Kirkland MD Attestation Narrative: Date: 10/30/17 Time: 9:23 PM 10/30/2017-9:15 PM-I reviewed this chart, the patient history, and the RESEARCH GENETICIST's/PA 's documented findings as above. We discussed and formulated the assessment and plan as above with the additions below.-Dr. Kirkland I saw the patient early this afternoon. I did examine the patient's feet. She seems to have some mild skin color changes with more erythema on most of the plantar portion of the foot with white skin in the arches. She stated that her feet have looked this way for 5 or 6 years as long as she has had diabetes. She has noticed that in the mornings, her feet have looked a little more purplish but that has resolved at this time. She denies any pain in her feet. She is otherwise feeling well. She denies any shortness of breath. She denies any chest pain. She is eating and drinking okay. I do not see any other skin discoloration elsewhere. Chest is clear to auscultation. Cardiovascular reveals a regular rate and rhythm. Abdomen is soft and nontender. Extremities are free of edema. Neurologic exam reveals no focal deficits. Because of concern for possible "blue toe syndrome" or skin necrosis, we did delay her discharge. She did undergo bilateral arterial Dopplers of her legs which showed only mild stenosis in the left distal posterior tibial artery but no occlusions. Right leg showed no hemodynamically significant stenosis. I did reexamine the patient in the afternoon and her feet looked the same. Her discoloration looked similar to people with Raynaud's syndrome. Feet were warm. Pulses were good. I asked her again how long her feet have had this discoloration and she stated ever since she was diagnosed with diabetes which was approximately 5 years ago. At this time, I do not think she is having a complication from her Coumadin such as blue toe syndrome or skin necrosis. We did restart her Coumadin this evening prior to discharge. Plans are for follow- up with Dr. Arroyo tomorrow to receive Lovenox and repeat INR. My nurse practitioner, Marie did speak with Dr. Arroyo.
[2017-10-30] MEDS ORDERED: WARFARIN 5 MG TABLET PO ONE (16:45)
--- NOTE | 2017-10-30 17:00 | Work/School Release ---
<Marie Casiano - Last Filed: 10/30/17 16:57> Work/School Release - Date Date: 10/30/17 - Work Release Remain off work/school for:: Recovery from hospitalization from 10/27/17-10/30/17 May return to work on:: November 10, 2017 Restrictions:: No restrictions. <Isabel Kirkland - Last Filed: 10/30/17 21:15> Work/School Release - Date Date: 10/30/17
[2017-10-30 17:08] VITALS: BP 123/69; PULSE 74; RESP 16; TEMP 98.2
== END 2017-10-30 17:45 | disposition home or self-care (01) | DRG 176 ==
LOC: ED 08:35 → SUATTDRO 10:42 → MED 10:42
PROVIDERS: ADMIT Hospitalist; ATTEND Internal Medicine